=== PATIENT | female | born 1970 | race Caucasian/White ===

== ENCOUNTER 2018-12-24 10:39 | Emergency (ER) | payer BC ==
[2018-12-24] MEDS ORDERED: hydrOXYzine HCL TAB* 25 MG PO ONE (12:29)
--- NOTE | 2018-12-24 12:45 | ED ---
Psychiatric Complaint - HPI Summary HPI Summary: 48 year female presents with anxiety attack today. States that she was driving when she became short of breath. She started to hyperventilate. She had numbness and tingling in extremities. She states that has not had any chest pain. She denies headache that resolved. States she now feels a little bit anxious but all other symptoms have resolved. She states that it feels like a little uncomfortable in the skin. States she's been under a lot of stress lately and thinks may be contributing. She has had this before. Has no medical conditions. no si/hi ideation. - History Of Current Complaint Chief Complaint: EDPsychosocial Time Seen by Provider: 12/24/18 11:57 - Allergies/Home Medications Allergies/Adverse Reactions: Allergies Allergy/AdvReac Type Severity Reaction Status Date / Time No Known Allergies Allergy Verified 12/24/18 10:43 PMH/Surg Hx/FS Hx/Imm Hx Endocrine/Hematology History: Denies: Hx Anticoagulant Therapy Cardiovascular History: Reports: Hx Peripheral Vascular Disease - VARICOSE VEINS RIGHT LEG History: Reports: Hx Kidney Stones - ABOUT 4 YEARS AGO AND THEY PASSED NATURALLY Musculoskeletal History: Reports: Hx Arthritis - BILATERAL HANDS Sensory History: Denies: Hx Contacts or Glasses, Hx Hearing Aid Opthamlomology History: Denies: Hx Contacts or Glasses Psychiatric History: Reports: Hx Anxiety - NO MEDS PRESENTLY - Surgical History Surgery Procedure, Year, and Place: 02/2012 LEFT LEG VARICOSE VEIN SURGERY, [facility] [place]. TOOTH PIC EXTRACTION LEFT FOOT, [place] Hx Anesthesia Reactions: No Infectious Disease History: No Infectious Disease History: Denies: Traveled Outside the [place] in Last 30 Days - Family History Known Family History: Positive: Non-Contributory - Social History Alcohol Use: Occasionally Substance Use Type: Reports: Marijuana Substance Use Comment - Amount & Last Used: 01/06/15 1400 Smoking Status (MU): Never Smoked Tobacco Review of Systems Negative: Fever Negative: Chest Pain Positive: Shortness Of Breath - resolved Positive: Paresthesia Positive: Anxious All Other Systems Reviewed And Are Negative: Yes Physical Exam Triage Information Reviewed: Yes Vital Signs On Initial Exam: Initial Vitals Temp Pulse Resp BP Pulse Ox 99.6 F 98 24 175/112 97 12/24/18 10:41 12/24/18 10:41 12/24/18 10:41 12/24/18 10:41 12/24/18 10:41 Vital Signs Reviewed: Yes Appearance: Positive: Well-Appearing Skin: Positive: Warm, Dry Head/Face: Positive: Normal Head/Face Inspection Eyes: Positive: Normal, Conjunctiva Clear ENT: Positive: Pharynx normal Respiratory/Lung Sounds: Positive: Clear to Auscultation, Breath Sounds Present Cardiovascular: Positive: Normal, RRR Abdomen Description: Positive: Nontender, Soft Bowel Sounds: Positive: Present Musculoskeletal: Positive: Normal Neurological: Positive: Normal Psychiatric: Positive: Anxious Diagnostics - Vital Signs Vital Signs Temp Pulse Resp BP Pulse Ox 12/24/18 10:41 99.6 F 98 24 175/112 97 - Laboratory Result Diagrams: 12/24/18 12:36 12/24/18 12:36 Lab Statement: Any lab studies that have been ordered have been reviewed, and results considered in the medical decision making process. Course/Dx - Course Course Of Treatment: 48 year female presents with anxiety attack today. States that she was driving when she became short of breath. She started to hyperventilate. She had numbness and tingling in extremities. She states that has not had any chest pain. She denies headache that resolved. States she now feels a little bit anxious but all other symptoms have resolved. She states that it feels like a little uncomfortable in the skin. States she's been under a lot of stress lately and thinks may be contributing. She has had this before. Has no medical conditions. On exam patient presented anxious. Otherwise normal physical exam. lab work without significiant abnormaility. gave hydroxyzine and symptoms resolved. told to follow up with primary. patient understand and agrees with plan. - Differential Dx/Clinical Impression Differential Diagnosis/HQI/PQRI: Positive: Anxiety, Depression, Other - thryoid Provider Diagnosis: Anxiety Discharge - Sign-Out/Discharge Documenting (check all that apply): Patient Departure Patient Received Moderate/Deep Sedation with Procedure: No - Discharge Plan Condition: Good Disposition: HOME Prescriptions: hydrOXYzine HCL TAB* [Atarax 25 MG TAB*] 25 mg PO TID PRN #20 tab PRN Reason: Anxiety Patient Education Materials: Anxiety (ED) Referrals: Jud Amor [Primary Care Provider] - Major Merchant MD [Medical Doctor] - Additional Instructions: Practice deep breathing manage stress Take hydroxyzine up to three tablets daily as needed for anxiety Follow up with primary a referral was given for ENT Return to ED if develop any new or worsening symptoms - Billing Disposition and Condition Condition: GOOD Disposition: Home
[2018-12-24 13:21] LABS: ABS Eosinophils 0.1 10^3/ul (0-0.6); ABS Lymphocytes 1.9 10^3/ul (1.0-4.8); ABS Monocytes 0.7 10^3/ul (0-0.8); ABS Neutrophils 5.1 10^3/ul (1.5-7.7); Eosinophil % 0.7 %; Hematocrit 42 % (35-47); Hemoglobin 14.3 g/dL (12.0-16.0); Lymphocyte % 24.9 %; Mean Corpuscular HGB Conc 34 g/dL (31-36); Mean Corpuscular Hemoglobin 28 pg (27-31); Mean Corpuscular Volume 82 fL (80-97); Mean Platelet Volume 8.1 fL (7.4-10.4); Platelet Count 303 10^3/uL (150-450); Red Blood Count 5.13 10^6 /uL (3.70-4.87); Red Cell Distribution Width 13 % (10-15); White Blood Count 7.8 10^3/uL (3.5-10.8)
[2018-12-24 13:48] LABS: Albumin 4.5 g/dL (3.2-5.2); Albumin/Globulin Ratio 1.7 (1-3); BUN/Creatinine Ratio 14.1 (8-20); Calcium 9.4 mg/dL (8.6-10.3); EGFR African American 120.9 (>60); EGFR Non-African American 99.9 (>60); Globulin 2.6 g/dL (2-4); Potassium 3.7 mmol/L (3.5-5.0); Total Bilirubin 0.4 mg/dL (0.2-1.0); Total Protein 7.1 g/dL (6.4-8.9)
[2018-12-24 14:09] LABS: TSH (Thyroid Stimulating Horm) 1.71 mcIU/mL (0.34-5.60)
[2018-12-24 14:47] VITALS: BP 141/80
== END 2018-12-24 14:30 | disposition home or self-care (01) ==
LOC: ED 10:39
DX: F41.9 Anxiety disorder, unspecified (principal)
CPT/HCPCS: 36415; 80053; 83735; 84443; 85025; 99282; A9270-GY